=== PATIENT | male | born 1945 | race Caucasian/White ===

== ENCOUNTER 2016-09-09 14:17 | Emergency (ER) | payer OTHER ==
[~2016-09-09 14:17] MED LIST: ALBUTEROL/IPRATROPIUM 1 VIAL SOL INH ONE
[2016-09-09] MEDS: SODIUM CHLORIDE 0.9% FLUSH 10 ML SOL IV PRN ×3 (14:29→15:21)
[2016-09-09] MEDS ORDERED: SOLUMEDROL 125 MG/2 ML 125 MG/2 ML PDS IV ONE (14:36)
[2016-09-09] MEDS ORDERED: CEFTRIAXONE 1 GM PDS 1 GM in SODIUM CHLORIDE 0.9% 100 ML 100 ML IV ONE (14:36)
[2016-09-09] MEDS ORDERED: LORAZEPAM 2 MG/ML SOL IV ONE (14:37)
[2016-09-09] MEDS ORDERED: LORAZEPAM 2 MG/ML SOL ONE (14:40)
[2016-09-09] MEDS ORDERED: CEFTRIAXONE 1 GM PDS ONE (14:40)
[2016-09-09] MEDS ORDERED: SOLUMEDROL 125 MG/2 ML 125 MG/2 ML PDS ONE (14:40)
[2016-09-09 14:47] LABS: ABG PH 7.39 (7.35-7.45)
[2016-09-09 14:48] LABS: BASOPHILS % (AUTO) 0 % (0-3); EOSINOPHILS % (AUTO) 0 % (0-9); HEMATOCRIT 38 % (39-53); MEAN CORPUSCULAR HGB CONC 33.1 gm/dl (32.0-36.0); MEAN CORPUSCULAR VOLUME 90 fL (80-100); MONOCYTES % (AUTO) 4.6 % (0-12); NEUTROPHILS % (AUTO) 92.8 % (37-80)
[2016-09-09 14:59] LABS: ALBUMIN 2.6 gm/dl (3.4-5.0); ALT 30 IU/L (14-63); GLOM FILT RATE 68 mL/min (>60); POTASSIUM 4.1 mMol/L (3.5-5.1); SODIUM 139 mMol/L (136-145)
[2016-09-09 15:50] VITALS: TEMP 98
[2016-09-09] MEDS ORDERED: VANCOMYCIN HYDROCHLORIDE 500 MG PDS IV ONE (15:56)
[2016-09-09] MEDS ORDERED: VANCOMYCIN HCL 500 MG PDS 1,000 MG in SODIUM CHLORIDE 0.9% 100 ML 100 ML IV ONE (15:58)
[2016-09-09 16:50] VITALS: BP 103/68; PULSE 98; RESP 22; O2SAT 92
== END 2016-09-09 16:26 | disposition short-term general hospital (02) | DRG 204 ==
LOC: ED 14:17
DX: R06.02 Shortness of breath (principal); Z99.81 Dependence on supplemental oxygen; C10.9 Malignant neoplasm of oropharynx, unspecified; J98.11 Atelectasis; J44.9 Chronic obstructive pulmonary disease, unspecified; Z85.118 Personal history of other malignant neoplasm of bronchus and lung; Z87.01 Personal history of pneumonia (recurrent); Z87.891 Personal history of nicotine dependence; R53.1 Weakness; R53.81 Other malaise; R00.0 Tachycardia, unspecified; R91.8 Other nonspecific abnormal finding of lung field; Z79.82 Long term (current) use of aspirin
CPT/HCPCS: 36415; 36600; 71010; 80053; 82803; 83880; 84484; 85025; 85610; 87040; 93005; 96365; 96374; 96375; 99291; J0696; J2060; J2930; J3370; J7620